=== PATIENT | female | born 1990 | race Caucasian/White ===

== ENCOUNTER 2018-08-14 21:43 | Emergency (ER) | payer MEDICAID, OTHER ==
[~2018-08-14] VITALS: Ht 165.1 cm; Wt 58.1 kg
[2018-08-14 22:08] VITALS: BP 132/84
== END 2018-08-14 23:04 | disposition home or self-care (01) ==
LOC: ER 21:57
DX: B07.9 Viral wart, unspecified (principal); F31.9 Bipolar disorder, unspecified
CPT/HCPCS: Z7502

== ENCOUNTER 2019-02-05 23:22 | Emergency (ER) | payer MEDICAID, OTHER ==
[~2019-02-05] VITALS: Ht 165.1 cm; Wt 59.0 kg
[2019-02-05 23:25] VITALS: BP 121/68
--- NOTE | 2019-02-05 23:58 | NUR ---
Patient discharged to home in stable condition. Written and verbal after care instructions given. Patient verbalizes understanding of instruction. Pt ambulatory with a steady gait
== END 2019-02-05 23:59 | disposition home or self-care (01) ==
LOC: ER 23:23
DX: L03.115 Cellulitis of right lower limb (principal); F31.9 Bipolar disorder, unspecified; Z88.1 Allergy status to other antibiotic agents

== ENCOUNTER 2019-05-07 01:56 | Emergency (ER) | payer OTHER ==
[~2019-05-07] VITALS: Ht 165.1 cm; Wt 59.9 kg
[2019-05-07 02:12] VITALS: BP 124/64
[2019-05-07] MEDS ORDERED: TDAP [DIPH/PERTUSSIS/TET] 0.5 ML VIAL IM ONE ×2 (02:30→02:38)
== END 2019-05-07 03:09 | disposition home or self-care (01) ==
LOC: ER 02:01
DX: S61.452A Open bite of left hand, initial encounter (principal); F31.9 Bipolar disorder, unspecified; Z88.1 Allergy status to other antibiotic agents; W54.0XXA Bitten by dog, initial encounter; Y93.89 Activity, other specified; Y92.89 Other specified places as the place of occurrence of the external cause; Y99.8 Other external cause status
CPT/HCPCS: 90471; 90715; 99283; A6403